=== PATIENT | female | born 1955 | race Caucasian/White ===

== ENCOUNTER → 2017-04-25 | Outpatient (CLI) | payer BC ==
[~2017-04-25] MED LIST: ALBUTEROL0.83 MG/ML IH; BACTRIM DS 8001 TAB PO; CELEBREX 1100 MG/CAP PO; CEPHALEXIN500 M1 PO; LEVOTHYROXINE0.1 MG PO; LEVOXYL0.088 MG PO; NITROSTAT0.3 MG SL; NORCO 325 MG-7.1 TAB PO; PREDNISONE 20MG20 MG PO; PRILOSEC 20MG20 MG PO; PROAIR HFA0.09 MG/AC IH; SINGULAIR; STATIN; TIROSINT100 MCG PO; TRIAMCINOLONE A15 GM TP; TYLENOL 500MG500 MG PO; ULTRAM 50MG TAB50 MG PO; ZOFRAN 4MG T4 MG/TAB PO
== END ==
LOC: MC.RAD 09:37
DX: Z12.31 Encounter for screening mammogram for malignant neoplasm of breast (principal)

== ENCOUNTER → 2018-05-24 | Outpatient (CLI) | payer BC | LOC: MC.RAD 15:38 | DX: Z12.31 Encounter for screening mammogram for malignant neoplasm of breast (principal) ==

== ENCOUNTER 2019-05-18 21:07 | Emergency (ER) | payer BC ==
[~2019-05-18] VITALS: Ht 162.6 cm; Wt 71.4 kg
[2019-05-18 21:11] VITALS: TEMP 97.8
[2019-05-18] MEDS ORDERED: PROAIR HFA0.09 MG/AC IH (21:24)
[2019-05-18] MEDS ORDERED: SINGULAIR 110 MG/TAB PO (21:24)
[2019-05-18] MEDS ORDERED: SYNTHROID0.1 MG/TAB PO (21:24)
[2019-05-18] MEDS ORDERED: PRAVACHOL10 MG PO (21:25)
[2019-05-18 21:32] LABS: BASO # 0.1 (0.0-0.2); BASO % 0.7 % (0.0-2.0); EOS # 0.1 (0.0-0.7); EOS % 1.8 % (0-4.0); GRAN # 3.7 (1.4-6.5); HEMATOCRIT 41.9 % (37.0-47.0); HEMOGLOBIN 13.6 g/dl (12.5-16.0); LYMPH # 2.4 (1.2-3.4); LYMPH % 34.1 % (20.0-51.0); MEAN CELL VOLUME 88 fl (80.0-100.0); MEAN CORPUSCULAR HEMOGLOBIN 29 pg (27.0-31.0); MEAN CORPUSCULAR HGB CONC 33 g/dl (33.0-37.0); MONO # 0.8 (0.1-0.6); MONO % 11.3 % (1.7-9.3); PLATELET COUNT 214 K/mm3 (130-400); RED BLOOD COUNT 4.78 M/mm3 (4.10-5.30); REDCELL DISTRIBUTION WIDTH-CV 12.4 % (11.5-14.5)
[2019-05-18 21:45] LABS: ALANINE AMINOTRANSFERASE 8 U/L (9-52); ALBUMIN 4.6 gm/dL (3.5-5.0); ALKALINE PHOSPHATASE 63 U/L (50-136); ANION GAP 8 mmol/L (7-16); AST,SGOT 21 U/L (15-37); BILIRUBIN,TOTAL 0.3 mg/dL (0.0-1.0); BLOOD UREA NITROGEN 26 mg/dL (7-17); C-REACTIVE PROTEIN 0.6 mg/dL (0.0-0.9); CALCIUM 10.5 mg/dL (8.4-10.2); CARBON DIOXIDE 28 mmol/L (22-30); CHLORIDE 106 mmol/L (98-107); CREATININE, serum 0.78 (0.52-1.25); GLUCOSE 103 mg/dL (74-106); LIPASE 98 U/L (23-300); POTASSIUM 3.6 mmol/L (3.4-5.0); SODIUM 142 mmol/L (137-145); TOTAL PROTEIN 7.9 gm/dL (6.4-8.2)
[2019-05-18 21:55] LABS: TROPONIN-I < 0.012 ng/mL (0.000-0.035)
[2019-05-18] MEDS ORDERED: PREDNISONE20 MG PO (22:45)
[2019-05-19 01:27] VITALS: BP 134/78; PULSE 74
== END 2019-05-19 01:27 | disposition home or self-care (01) ==
LOC: COL.ER 21:07
PROVIDERS: Emergency Medicine
DX: R07.89 Other chest pain (principal); R06.00 Dyspnea, unspecified; E03.9 Hypothyroidism, unspecified; E78.5 Hyperlipidemia, unspecified; J45.909 Unspecified asthma, uncomplicated
CPT/HCPCS: J7030; J7512

== ENCOUNTER 2019-05-26 01:31 | Observation (INO) | payer BC ==
[~2019-05-26] VITALS: Ht 162.6 cm; Wt 70.9 kg
[~2019-05-26 01:31] MED LIST changes: +PRAVACHOL10 MG PO; +PREDNISONE20 MG PO; +SINGULAIR 110 MG/TAB PO; +SYNTHROID0.1 MG/TAB PO
[2019-05-26 02:10] LABS: BASO # 0.1 (0.0-0.2); BASO % 0.7 % (0.0-2.0); EOS # 0.1 (0.0-0.7); EOS % 1.7 % (0-4.0); GRAN # 4.2 (1.4-6.5); GRAN % 58.3 % (42.2-75.2); HEMATOCRIT 42.4 % (37.0-47.0); HEMOGLOBIN 13.7 g/dl (12.5-16.0); LYMPH # 2.1 (1.2-3.4); LYMPH % 29.3 % (20.0-51.0); MEAN CELL VOLUME 87 fl (80.0-100.0); MEAN CORPUSCULAR HEMOGLOBIN 28 pg (27.0-31.0); MEAN CORPUSCULAR HGB CONC 32 g/dl (33.0-37.0); MEAN PLATELET VOLUME 10.1 fl (7.4-10.4); MONO # 0.7 (0.1-0.6); MONO % 9.7 % (1.7-9.3); PLATELET COUNT 185 K/mm3 (130-400); REDCELL DISTRIBUTION WIDTH-CV 12.4 % (11.5-14.5)
[2019-05-26 02:20] LABS: ALANINE AMINOTRANSFERASE 14 U/L (9-52); ALBUMIN 4.3 gm/dL (3.5-5.0); ALKALINE PHOSPHATASE 68 U/L (50-136); ANION GAP 7 mmol/L (7-16); AST,SGOT 18 U/L (15-37); BILIRUBIN,TOTAL 0.4 mg/dL (0.0-1.0); BLOOD UREA NITROGEN 21 mg/dL (7-17); CALCIUM 11.2 mg/dL (8.4-10.2); CARBON DIOXIDE 27 mmol/L (22-30); CHLORIDE 105 mmol/L (98-107); CREATININE, serum 0.83 (0.52-1.25); GLUCOSE 111 mg/dL (74-106); POTASSIUM 3.8 mmol/L (3.4-5.0); SODIUM 140 mmol/L (137-145); TOTAL PROTEIN 7.5 gm/dL (6.4-8.2)
[2019-05-26 02:32] LABS: TROPONIN-I < 0.012 ng/mL (0.000-0.035)
[2019-05-26 03:58] LABS: COLLECTION METHOD CLEAN CATCH
[2019-05-26 04:07] LABS: MUCOUS Present /lpf; PH 6 (5-8); SQUAMOUS EPITHELIAL 0-2 /hpf; URINE APPEARANCE Clear; URINE BACTERIA None Seen /hpf; URINE BILIRUBIN Negative (NEGATIVE); URINE BLOOD 1+ (NEGATIVE); URINE COLOR Straw; URINE GLUCOSE Negative (NEGATIVE); URINE KETONE Negative (NEGATIVE); URINE LEUKOCYTE ESTERASE 3+ (NEGATIVE); URINE NITRATE Negative (NEGATIVE); URINE PROTEIN(semi-quant) Negative (NEGATIVE); URINE RBC 0-2 /hpf; URINE UROBILINOGEN Negative (NEGATIVE)
[2019-05-26] MEDS ORDERED: FLOVENT DI100 MCG/Ac IH (08:50)
--- NOTE | 2019-05-26 09:30 | NUR ---
Pt arrived to the floor in room 318 at this time. Pt is A/O x4. Her breathing is even and unlabored on RA. Pt denies any SOB at this time. Pt denies Chest pain at this time. No N/V. IV to LW intact. Meds and history verified with patient. POC discussed with patient who verbalizes understanding. No needs at this time. Call light within reach.
[2019-05-26 09:35] VITALS: BP 133/67; PULSE 58; TEMP 97.3
[2019-05-26 12:43] VITALS: BP 108/58; PULSE 69; TEMP 97.8
--- NOTE | 2019-05-26 13:30 | NUR ---
Plan: To return home with Tre(no number provded) as care support. SM also listed Astrid Mckeon as care support, EMR and [phone]. Patient resides in [place] with her and adult children. Assess: SW met with Patient who reports her PCP is Dr. Amezquita, and she gets her medications from [facility] with no complications. Sm reported that she uses a nebulizer mainly at night, but not everyday. Patient denied having any concerns, and declined additional services at t his time. Action: No additional concerns identified. Patient was educated on community resources and supports.
[2019-05-26 16:24] VITALS: BP 123/62; PULSE 62; TEMP 97.6
--- NOTE | 2019-05-26 19:05 | NUR ---
Pt had uneventful day. Denied any chest pains or palpitations. VSS. Plan to have stress test tomorrow pt aware. Report given to KELLI Aguilar. No needs at this time.
--- NOTE | 2019-05-26 19:30 | NUR ---
Shift assessment complete. Pt resting in bed, awake, a&o, cooperative c cares. Pt denies pain, SOB or any other c/o at this time. IV patent. Tele in place. PT denies further needs. Call light in reach, will contineu to monitor.
[2019-05-26 21:00] VITALS: BP 135/75; PULSE 65; TEMP 97.5
[2019-05-27] VITALS (10 sets, daily range): BP systolic 101–156; BP diastolic 47–84; PULSE 66–112; TEMP 97.6–98.3
[2019-05-27 06:36] LABS: CALCIUM 9.5 mg/dL (8.4-10.2); CHOLESTEROL RISK RATIO 3.5; CREATININE, serum 0.87 (0.52-1.25); POTASSIUM 4.5 mmol/L (3.4-5.0)
--- NOTE | 2019-05-27 07:57 | NUR ---
Pt assessment complete. Pt is laying in bed upon entry, she is A/O x4. Her breathing is even and unlabored on RA. Pt denies SOB. No N/V currently despite having N/V and diarrhea through the night. The patient believes this is due to her "irritable bowel syndrome". Pt denies any chest pain or palpitations. No dizziness at this time. Pt denies needs at this time. Call light within reach.
--- NOTE | 2019-05-27 08:11 | NUR ---
student nurse assisting with the nurse on shift. Talked with the patient about remaining on NPO. Listened to lung sounds and they were clear. bowel sounds present in all 4 quadrants.
[2019-05-27] MEDS ORDERED: PAMELOR PO (11:08)
--- NOTE | 2019-05-27 11:34 | NUR ---
Initial visit; Patient waiting for test results and visited about her uatsdin and new [employer] Machine Programmer coming. Patient thanked Micropaleontologist for 'blessing' and keeping her in Micropaleontologist's prayers.
--- NOTE | 2019-05-27 14:33 | NUR ---
INVESTIGATIONS MANAGER student met with the patient to discuss a discharge plan. The patient lives in [place] with her and their three daughters. The patient has a nebulizer and reports independence with ADLs. The patient's PCP is Dr. Amezquita and patient receives medications from [facility] with no difficulties. The patient does not have advanced directives in the EMR but was interested in DPOA-HC form. The form was provided. The patient plans to return home upon discharge. There are no other needs at this time.
--- NOTE | 2019-05-27 17:07 | NUR ---
Discharge paperwork and instructions reviewed with patient, all questions answered at this time. IV to LFA dc'd catheter tip intact.
--- NOTE | 2019-05-27 18:42 | NUR ---
Pt wheeled out at this time
[2019-05-27 23:33] LABS: PTH,INTACT 134.9 pg/mL (6.6-88.9)
[2019-05-30 14:52] LABS: PTH-RELATED PEPTIDE <0.4 pmol/L (())
== END 2019-05-27 18:42 | disposition home or self-care (01) ==
LOC: COL.ER 01:31 → MEDICAL 06:27
PROVIDERS: Emergency Medicine; ADMIT Hospitalist
DX: R07.89 Other chest pain (principal); J45.909 Unspecified asthma, uncomplicated; E78.5 Hyperlipidemia, unspecified; E03.9 Hypothyroidism, unspecified; M79.89 Other specified soft tissue disorders; E83.52 Hypercalcemia; Z79.899 Other long term (current) drug therapy; K58.9 Irritable bowel syndrome, unspecified; Z82.49 Family history of ischemic heart disease and other diseases of the circulatory system
CPT/HCPCS: A9500; G0378; J2405; J2785; J7030

== ENCOUNTER → 2019-05-31 | Outpatient (CLI) | payer BC ==
[~2019-05-31] MED LIST changes: +FLOVENT DI100 MCG/Ac IH; +PAMELOR PO
== END ==
LOC: COL.PUL 05-29 08:00
DX: J45.909 Unspecified asthma, uncomplicated (principal)

== ENCOUNTER → 2019-08-15 | Outpatient (CLI) | payer BC | LOC: MC.RAD 09:54 | DX: Z12.31 Encounter for screening mammogram for malignant neoplasm of breast (principal) ==

== ENCOUNTER 2020-06-29 23:45 | Emergency (ER) | payer BC ==
[~2020-06-29] VITALS: Ht 160 cm; Wt 72.7 kg
[2020-06-29 23:51] VITALS: TEMP 98.1
[2020-06-30 00:41] LABS: BASO # 0.1 (0.0-0.2); BASO % 0.6 % (0.0-2.0); EOS # 0.1 (0.0-0.7); EOS % 1.4 % (0-4.0); GRAN # 5.4 (1.4-6.5); GRAN % 65.2 % (42.2-75.2); HEMATOCRIT 40.5 % (37.0-47.0); LYMPH % 23.7 % (20.0-51.0); MEAN CELL VOLUME 86 fl (80.0-100.0); MEAN CORPUSCULAR HEMOGLOBIN 28 pg (27.0-31.0); MEAN CORPUSCULAR HGB CONC 32 g/dl (33.0-37.0); MEAN PLATELET VOLUME 10.1 fl (7.4-10.4); MONO # 0.7 (0.1-0.6); MONO % 8.9 % (1.7-9.3); PLATELET COUNT 206 K/mm3 (130-400); RED BLOOD COUNT 4.71 M/mm3 (4.10-5.30); REDCELL DISTRIBUTION WIDTH-CV 12.5 % (11.5-14.5)
[2020-06-30 00:42] LABS: COLLECTION METHOD CLEAN CATCH
[2020-06-30 00:47] LABS: PH 6 (5-8); SQUAMOUS EPITHELIAL None Seen /hpf; URINE APPEARANCE Clear; URINE BACTERIA None Seen /hpf; URINE BILIRUBIN Negative (NEGATIVE); URINE BLOOD 1+ (NEGATIVE); URINE COLOR Colorless; URINE GLUCOSE Negative (NEGATIVE); URINE KETONE Negative (NEGATIVE); URINE LEUKOCYTE ESTERASE Trace (NEGATIVE); URINE NITRATE Negative (NEGATIVE); URINE PROTEIN(semi-quant) Negative (NEGATIVE); URINE RBC 0-2 /hpf; URINE UROBILINOGEN Negative (NEGATIVE)
[2020-06-30 01:12] LABS: ALANINE AMINOTRANSFERASE 12 U/L (4-34); ALBUMIN 4.4 gm/dL (3.5-5.0); ALKALINE PHOSPHATASE 75 U/L (50-136); ANION GAP 11 mmol/L (7-16); AST,SGOT 21 U/L (15-37); BILIRUBIN,TOTAL 0.4 mg/dL (0.0-1.0); BLOOD UREA NITROGEN 25 mg/dL (7-17); CALCIUM 10.6 mg/dL (8.4-10.2); CARBON DIOXIDE 24 mmol/L (22-30); CHLORIDE 105 mmol/L (98-107); CREATININE, serum 0.78 (0.52-1.25); GLUCOSE 121 mg/dL (74-106); POTASSIUM 4.3 mmol/L (3.4-5.0); SODIUM 139 mmol/L (137-145); TOTAL PROTEIN 7.9 gm/dL (6.4-8.2)
[2020-06-30 01:22] LABS: TROPONIN-I < 0.012 ng/mL (0.000-0.035)
[2020-06-30 04:39] VITALS: BP 145/84; PULSE 60
== END 2020-06-30 04:39 | disposition home or self-care (01) ==
LOC: COL.ER 23:45
PROVIDERS: Emergency Medicine
DX: I10 Essential (primary) hypertension (principal); R20.2 Paresthesia of skin; Z88.8 Allergy status to other drugs, medicaments and biological substances

== ENCOUNTER 2020-07-12 17:19 | Emergency (ER) | payer MEDICARE, BC ==
[~2020-07-12] VITALS: Ht 162.6 cm; Wt 72.7 kg
[2020-07-12 17:25] VITALS: TEMP 97.8
[2020-07-12 18:06] LABS: BASO % 0.4 % (0.0-2.0); EOS # 0.1 (0.0-0.7); GRAN # 4.4 (1.4-6.5); GRAN % 63.5 % (42.2-75.2); HEMATOCRIT 39.4 % (37.0-47.0); HEMOGLOBIN 12.9 g/dl (12.5-16.0); LYMPH # 1.8 (1.2-3.4); LYMPH % 25.8 % (20.0-51.0); MEAN CELL VOLUME 87 fl (80.0-100.0); MEAN CORPUSCULAR HEMOGLOBIN 28 pg (27.0-31.0); MEAN CORPUSCULAR HGB CONC 33 g/dl (33.0-37.0); MEAN PLATELET VOLUME 10.6 fl (7.4-10.4); MONO # 0.6 (0.1-0.6); MONO % 8.2 % (1.7-9.3); PLATELET COUNT 197 K/mm3 (130-400); RED BLOOD COUNT 4.54 M/mm3 (4.10-5.30); REDCELL DISTRIBUTION WIDTH-CV 12.6 % (11.5-14.5)
[2020-07-12 18:08] LABS: PROTHROMBIN TIME 11.7 SECONDS (9.7-12.8)
[2020-07-12 18:09] LABS: ALANINE AMINOTRANSFERASE 11 U/L (4-34); ALBUMIN 4.3 gm/dL (3.5-5.0); ALKALINE PHOSPHATASE 64 U/L (50-136); ANION GAP 10 mmol/L (7-16); AST,SGOT 18 U/L (15-37); BILIRUBIN,TOTAL 0.3 mg/dL (0.0-1.0); BLOOD UREA NITROGEN 23 mg/dL (7-17); CARBON DIOXIDE 25 mmol/L (22-30); CHLORIDE 105 mmol/L (98-107); CREATININE, serum 0.81 (0.52-1.25); GLUCOSE 126 mg/dL (74-106); POTASSIUM 3.8 mmol/L (3.4-5.0); SODIUM 140 mmol/L (137-145); TOTAL PROTEIN 7.6 gm/dL (6.4-8.2)
[2020-07-12 18:10] LABS: PARTIAL THROMBOPLASTIN TIME 36.6 SECONDS (26.0-37.0)
[2020-07-12 18:20] LABS: TROPONIN-I < 0.012 ng/mL (0.000-0.035)
[2020-07-12] MEDS ORDERED: PROTONIX20 MG PO (20:38)
[2020-07-12 21:25] VITALS: BP 134/83; PULSE 68
== END 2020-07-12 21:25 | disposition home or self-care (01) ==
LOC: COL.ER 17:19
PROVIDERS: Nurse Practitioner
DX: R07.9 Chest pain, unspecified (principal); J45.909 Unspecified asthma, uncomplicated; E05.90 Thyrotoxicosis, unspecified without thyrotoxic crisis or storm; Z90.710 Acquired absence of both cervix and uterus; Z88.6 Allergy status to analgesic agent; Z88.8 Allergy status to other drugs, medicaments and biological substances; Z79.890 Hormone replacement therapy; Z79.51 Long term (current) use of inhaled steroids
CPT/HCPCS: J7030

== ENCOUNTER → 2020-08-17 | Outpatient (CLI) | payer MEDICARE, BC ==
[~2020-08-17] MED LIST changes: +PROTONIX20 MG PO
== END ==
LOC: MC.RAD 10:15
DX: Z12.31 Encounter for screening mammogram for malignant neoplasm of breast (principal)

== ENCOUNTER → 2020-12-18 | Outpatient (CLI) | payer MEDICARE, BC | LOC: COL.RAD 11-17 12:00 | DX: N13.30 Unspecified hydronephrosis (principal) ==

== ENCOUNTER → 2021-05-20 | Outpatient (CLI) | payer MEDICARE, BC ==
[~2021-05-20] MED LIST changes: +LIVALO1 MG PO; +VOLTAREN 75 DR75 MG PO
== END ==
LOC: COL.RAD 05-19 07:30
DX: N28.1 Cyst of kidney, acquired (principal); N13.30 Unspecified hydronephrosis

== ENCOUNTER 2021-06-12 07:36 | Emergency (ER) | payer MEDICARE, BC ==
[~2021-06-12] VITALS: Ht 162.6 cm; Wt 72.7 kg
[~2021-06-12 07:36] MED LIST changes: -LIVALO1 MG PO; -VOLTAREN 75 DR75 MG PO
[2021-06-12 07:40] VITALS: BP 130/72; TEMP 96.9
[2021-06-12] MEDS ORDERED: LIVALO1 MG PO (08:21)
[2021-06-12] MEDS ORDERED: VOLTAREN 75 DR75 MG PO (08:46)
[2021-06-12 08:57] VITALS: PULSE 66
== END 2021-06-12 08:59 | disposition home or self-care (01) ==
LOC: COL.ER 07:36
DX: S83.241A Other tear of medial meniscus, current injury, right knee, initial encounter (principal); R07.9 Chest pain, unspecified; E78.5 Hyperlipidemia, unspecified; K21.9 Gastro-esophageal reflux disease without esophagitis; Z79.899 Other long term (current) drug therapy; X50.1XXA Overexertion from prolonged static or awkward postures, initial encounter

== ENCOUNTER → 2021-07-16 | Outpatient (CLI) | payer MEDICARE, BC ==
[~2021-07-16] MED LIST changes: +LIVALO1 MG PO; +VOLTAREN 75 DR75 MG PO
== END ==
LOC: COL.RAD 08:19
DX: Z13.89 Encounter for screening for other disorder (principal); R93.421 Abnormal radiologic findings on diagnostic imaging of right kidney; N13.30 Unspecified hydronephrosis
CPT/HCPCS: Q9967

== ENCOUNTER → 2021-10-27 | Outpatient (CLI) | payer MEDICARE, BC | LOC: MC.RAD 09-16 15:30 | DX: Z12.31 Encounter for screening mammogram for malignant neoplasm of breast (principal) ==

== ENCOUNTER 2022-09-03 19:57 | Emergency (ER) | payer MEDICARE, BC ==
[~2022-09-03] VITALS: Ht 162.6 cm; Wt 74.5 kg
[2022-09-03 20:01] VITALS: TEMP 98.3
[2022-09-03] MEDS ORDERED: ZITHROMAX Z PA250 MG PO (21:23)
[2022-09-03 21:37] VITALS: BP 123/63; PULSE 72
== END 2022-09-03 21:37 | disposition home or self-care (01) ==
LOC: COL.ER 19:57
DX: J20.9 Acute bronchitis, unspecified (principal); Z20.822 Contact with and (suspected) exposure to COVID-19; Z87.09 Personal history of other diseases of the respiratory system
CPT/HCPCS: J8540

== ENCOUNTER → 2022-11-04 | Outpatient (CLI) | payer MEDICARE, BC ==
[~2022-11-04] MED LIST changes: +ZITHROMAX Z PA250 MG PO
== END ==
LOC: COL.RAD 12:23
DX: N13.30 Unspecified hydronephrosis (principal)

== ENCOUNTER → 2023-04-24 | Outpatient (CLI) | payer MEDICARE, BC ==
[2023-04-24 09:08] LABS: BASO # 0.1 K/mm3 (0.0-0.2); BASO % 0.7 % (0.0-2.0); EOS # 0.1 K/mm3 (0.0-0.7); EOS % 1.3 % (0.0-4.0); GRAN # 4.6 K/mm3 (1.4-6.5); GRAN % 65.4 % (42.2-75.2); HEMOGLOBIN 14.2 g/dl (12.5-16.0); LYMPH # 1.6 K/mm3 (1.2-3.4); LYMPH % 22.3 % (20.0-51.0); MEAN CELL VOLUME 87 fl (80.0-100.0); MEAN CORPUSCULAR HEMOGLOBIN 29 pg (27-31); MEAN CORPUSCULAR HGB CONC 33 g/dl (33.0-37.0); MONO # 0.7 K/mm3 (0.1-0.6); PLATELET COUNT 205 K/mm3 (130-400); RED BLOOD COUNT 4.93 M/mm3 (4.10-5.30); REDCELL DISTRIBUTION WIDTH-CV 12.1 % (11.5-14.5)
[2023-04-24 09:20] LABS: ALANINE AMINOTRANSFERASE 12 U/L (0-55); ALBUMIN 3.8 gm/dL (3.4-4.8); ALKALINE PHOSPHATASE 69 U/L (40-150); ANION GAP 9 mmol/L (7-16); AST,SGOT 12 U/L (5-34); BILIRUBIN,TOTAL 0.4 mg/dL (0.2-1.2); BLOOD UREA NITROGEN 20 mg/dL (10-20); CALCIUM 10.9 mg/dL (8.4-10.2); CARBON DIOXIDE 27 mmol/L (23-31); CHLORIDE 108 mmol/L (98-107); CREATININE, serum 0.87 mg/dL (0.57-1.11); GLUCOSE 103 mg/dL (70-99); POTASSIUM 4.4 mmol/L (3.5-4.5); SODIUM 144 mmol/L (136-145); TOTAL PROTEIN 7.4 gm/dL (6.2-8.1)
[2023-04-24 09:39] LABS: THYROID STIMULATING HORMONE 1.719 uIU/mL (0.350-4.940)
[2023-04-24 09:48] LABS: TROPONIN-I < 0.010 ng/mL (0.00-0.033)
== END ==
LOC: COL.LAB 08:47
PROVIDERS: Family Medicine
DX: I51.7 Cardiomegaly (principal); E03.9 Hypothyroidism, unspecified

== ENCOUNTER → 2023-08-03 | Outpatient (CLI) | payer MEDICARE, BC | LOC: COL.RAD 07:03 | DX: R14.0 Abdominal distension (gaseous) (principal) ==

== ENCOUNTER → 2023-09-01 | Outpatient (CLI) | payer MEDICARE, BC | LOC: COL.RAD 09:57 | DX: E21.3 Hyperparathyroidism, unspecified (principal) | CPT/HCPCS: A9500-JZ ==

== ENCOUNTER → 2023-09-08 | Outpatient (CLI) | payer MEDICARE, BC | LOC: COL.RAD 08:26 | DX: E04.2 Nontoxic multinodular goiter (principal) ==

== ENCOUNTER → 2024-01-18 | Outpatient (CLI) | payer MEDICARE, BC | LOC: MC.RAD 09:32 | DX: Z12.31 Encounter for screening mammogram for malignant neoplasm of breast (principal) ==

== ENCOUNTER → 2024-04-02 | Outpatient (CLI) | payer MEDICARE, BC | LOC: COL.LAB 10:36 | DX: K58.2 Mixed irritable bowel syndrome (principal) ==